=== PATIENT | male | born 1970 | race Two or more races ===

== ENCOUNTER 2017-01-06 10:16 | Emergency (ER) | payer BC | END 2017-01-06 10:27 | disposition home or self-care (01) | LOC: CFTX 10:16 | DX: T78.40XA Allergy, unspecified, initial encounter (principal); R03.0 Elevated blood-pressure reading, without diagnosis of hypertension; F17.210 Nicotine dependence, cigarettes, uncomplicated | CPT/HCPCS: 99282 ==